=== PATIENT | male | born 2000 | race Two or more races ===

== ENCOUNTER 2024-11-25 12:49 | Emergency (ER) | payer MEDICAID, SELFPAY ==
[2024-11-25 13:07] VITALS: BP 144/86; PULSE 100; RESP 18; TEMP 36.9; O2SAT 99; BMI 27.4
--- NOTE | 2024-11-25 13:11 | XR_ITS ---
Examination: Right hand 2 views TECHNIQUE: AP lateral right hand 2 views Date and time: November 25, 2024, 1312 hours INDICATIONS: Right thumb pain 2 weeks. FINDINGS: Soft tissue swelling about the right No fracture No foreign body No cortical bone destruction IMPRESSION: No cortical bone destruction or foreign body
--- NOTE | 2024-11-25 13:42 | PD.EDSKIN ---
ED Skin Abcess FB-RME/HPI General Chief complaint: Hand/Wrist Problems Stated complaint: SWELLING R) THUMB, 12/06 Time Seen by Provider: 11/25/24 12:58 Arrival date/time: 11/25/24 12:49 This is a case of 24-year-old male with no medical history came in in the emergency room due to right thumb pain and swelling history of present illness started 2 days prior to arrival in the emergency room patient was walking and accidentally fell and hyperextended her right thumb patient sustained a abrasion on the side of the right thumb due to worsening of the pain swelling and discharge from the abrasion patient decided to sought consult here in the emergency room patient tetanus shot is not up-to-date Limitations: no limitations Related Data Previous Rx's ?Medication ?Instructions ?Recorded cephalexin 500 mg capsule 500 mg PO QID #40 caps 11/25/24 ibuprofen 800 mg tablet 800 mg PO Q8H PRN pain #20 tabs 11/25/24 mupirocin 2 % topical ointment 1 applic topical TID #22 grams 11/25/24 sulfamethoxazole 800 1 tab PO Q12H #20 tabs 11/25/24 mg-trimethoprim 160 mg tablet (Bactrim DS) Allergies Allergy/AdvReac Type Severity Reaction Status Date / Time No Known Allergies Allergy Verified 11/25/24 12:55 Review of Systems Review of Systems Systems Reviewed: All systems reviewed, normal except as documented Constitutional Constitutional: Reports system reviewed and no additional complaints, except as documented and Reports as per HPI Cardiovascular Cardiovascular: Reports system reviewed and no additional complaints, except as documented and Reports as per HPI Respiratory Respiratory: Reports system reviewed and no additional complaints, except as documented and Reports as per HPI Gastrointestinal Gastrointestinal: Reports system reviewed and no additional complaints, except as documented and Reports as per HPI Musculoskeletal Musculoskeletal: Reports system reviewed and no additional complaints, except as documented and Reports as per HPI Neurologic Neurologic: Reports system reviewed and no additional complaints, except as documented and Reports as per HPI Past Medical History Social History SMOKING STATUS: Current every day smoker ED Exam General Limitations: Present no limitations General appearance: Present alert, in no apparent distress and other (Patient is awake alert oriented not in distress nontoxic looking well-hydrated well-nourished) Head Head exam: Present atraumatic, normocephalic and normal inspection Eye Eye exam: Present normal appearance, PERRL and EOMI ENT ENT exam: Present normal exam, normal oropharynx and mucous membranes moist Neck Neck exam: Present normal inspection, full ROM and trachea midline; Absent tenderness, meningismus, lymphadenopathy or thyromegaly Chest Chest inspection: Present normal inspection and symmetric chest wall rise; Absent tenderness Respiratory Respiratory exam: Present normal lung sounds bilaterally; Absent respiratory distress, wheezes, stridor, accessory muscle use or prolonged expiratory phase Cardiovascular Cardiovascular exam: Present regular rate, normal rhythm and normal heart sounds; Absent bradycardia, tachycardia, irregular rhythm, systolic murmur or diastolic murmur Abdominal Exam Abdominal exam: Present soft and normal bowel sounds; Absent distention, tenderness, guarding, rebound, rigidity, diminished bowel sounds, hyperactive bowel sounds, hypoactive bowel sounds or organomegaly Extremities Exam Extremities exam: Present normal inspection and full ROM Expanded Upper Extremity Exam Hand exam: Present normal inspection, full ROM and other (Noted a infected abrasion on the right side of the right thumb with discharge redness swelling tender on palpation ROM is intact nail is intact pulses were full and equal capillary refill less than 2 seconds); Absent tenderness, swelling, abrasion, laceration, skin avulsion, ecchymosis, deformity, crepitus, dislocation, erythema, amputation, nail avulsion or subungual hematoma Back Exam Back exam: Present normal inspection and full ROM Neurological Exam Neurological exam: Present alert, oriented X3, CN II-XII intact, normal gait and reflexes normal; Absent motor sensory deficit Psychiatric Psychiatric exam: Present normal affect and normal mood Skin Skin exam: Present warm, dry, intact, normal color and other (Infected abrasion on the right thumb with cellulitis) Course Quality Measures none Orders Category Date Time Status Wound Care NOW Care 11/25/24 13:11 Active XR hand RT 2V Stat Exams 11/25/24 13:11 Completed Ibuprofen Tab [Motrin Tab] Med 11/25/24 13:41 Once 800 mg PO X1 ONE TET,DIP/PERT AC (Adult)-Tdap [Boostrix Adult (Tdap) Med 11/25/24 13:11 Discontinued Vacc] 0.5 ml IMI .ONCE ONE cefTRIAXone [Rocephin] 1,000 mg Med 11/25/24 13:38 Discontinued Lidocaine 1% 20 ml [Xylocaine 1% 20 ML] 2.1 ml IM X1 Vital Signs Vital signs: Vital Signs Temperature 98.5 F 11/25/24 13:07 Pulse Rate 100 11/25/24 13:07 Respiratory Rate 18 11/25/24 13:07 Blood Pressure 144/86 H 11/25/24 13:07 Pulse Oximetry (%) 99 11/25/24 13:07 Oxygen Delivery Method Room Air 11/25/24 13:07 Oxygen saturation is 99% in room air normal Skin / Abscess / Foreign Body MDM Narrative MDM Narrative:: This is a case of 24-year-old male with no medical history came in in the emergency room due to right thumb pain and swelling history of present illness started 2 days prior to arrival in the emergency room patient was walking and accidentally fell and hyperextended her right thumb patient sustained a abrasion on the side of the right thumb due to worsening of the pain swelling and discharge from the abrasion patient decided to sought consult here in the emergency room patient tetanus shot is not up-to-date physical examination patient is awake alert oriented not in distress nontoxic looking well-hydrated well-nourished right time was cleaned with normal saline and Betadine dry and applied triple antibiotic ointment x-ray showed no fracture no dislocation physical examination showed a swelling tenderness on palpation on the right thumb with infected abrasion ROM intact neurovascular is intact the rest of the physical examination and neurological exam is normal and unremarkable patient was given ceftriaxone IM here due to cellulitis of the right thumb patient will follow-up with PCP in 2 days for reevaluation and worsening symptoms or any emergent condition return precaution in the ER was advised Patient was discharged with comfortable condition walking with stable gait. Patient verbalized no further complains explained diagnosis and answered patient question. Patient is comfortable with the proposed management plan including the need to follow up with his/her primary care physician and any specialist if applicable Discussed patient for any urgent condition or worsening sx, He/She needed to go to emergency room immediately or call 911. Patient acknowledge the responsibility to follow up as instructed and to monitor her/his symptoms. For any persistence of the symptoms for more than 3-5 days return precaution advised. Discussed the result of the test and was given printed discharge instruction Patient data External records reviewed:: [facility] previous records Clinical information provided by:: patient Social determinants that could affect healthcare access:: none (None) Patient has the following chronic illnesses:: None How is presenting disease/condition affected by chronic disease/condition?: no chronic disease Evaluation data The following diagnostics were reviewed and interpreted by me:: radiology exam(s) Lab and/or radiology exams considered but not ordered:: Reviewed Interpretation Summary: Reviewed Medications / Prescriptions Medications or Prescriptions considered but not ordered:: Given Medication administrations:: Medication Administration History Ibuprofen (Ibuprofen Tab 400 Mg Tablet) 800 mg PO X1 ONE Stop: 11/25/24 13:42 Discontinued Medications Ceftriaxone Sodium 1,000 mg/ (Lidocaine HCl 2.1 ml) 0 mg IM X1 ONE Stop: 11/25/24 13:39 Diphtheria/Tetanus/Acell Pertussis (Diphth,Pertuss(Acell),Tet Vac 0.5 Ml Syr- Adult) 0.5 ml IMi .ONCE ONE Stop: 11/25/24 13:12 Last Admin: 11/25/24 13:37 Dose: Not Given Documented By: OA Non-Admin Reason: Patient Refused Given Consultations Consultation(s) initiated? (list below): No Diagnosis Skin/Abscess Differential Diagnosis: abscess of skin or subcutaneous tissue and cellulitis Most likely diagnosis given after review of the tests above:: Cellulitis right thumb secondary to infected abrasion Admission Indicated Admission indicated?: not indicated Explain why admission is indicated or not indicated:: Not indicated Admission Request Was there a request for admission?: No Admission Attestation Admission request attestation: Not indicated Disposition Plan Disposition Plan: Discharge Discharge Attestation Discharge Attestation: The patient and all family members were given an opportunity to ask questions and understood the discharge instructions. Discharge instructions specifically effects, indications for sooner follow up or return to the emergency department, and the expected course of current diagnosis. Patient condition: Stable Discharge Plan Plan Patient Disposition: HOME (Self Care) Patient condition on transfer: Stable Prescriptions/Referrals Prescriptions/Med Rec: New sulfamethoxazole-trimethoprim [Bactrim DS] 800-160 mg tablet 1 tab PO Q12H Qty: 20 0RF cephalexin 500 mg capsule 500 mg PO QID Qty: 40 0RF mupirocin 2 % ointment 1 applic topical TID Qty: 22 0RF ibuprofen 800 mg tablet 800 mg PO Q8H PRN (Reason: pain) Qty: 20 0RF Problem List Clinical Impression: Abrasion of thumb, infected, Cellulitis of thumb Patient/Caregiver Discharge Instructions Education Materials: ED Abrasions, ED Cellulitis Additional Instructions: Follow-up with your primary care physician in 2 days for reevaluation and wound check return to the emergency room in 2 days for reevaluation of the cellulitis of the stump worsening symptoms or any emergent concerns such as redness swelling discharge from the wound pain fever chills return to the emergency room immediately or call 911 wound care daily keep the wound clean and dry finish the course of antibiotic Print Language: Faroese Stand Alone Forms: Winter Award Info., Patient Portal Info Letter PA/[employer] PRE[employer] HEALTH EDUCATOR Supervising Physician PA/[employer] PRE[employer] HEALTH EDUCATOR Supervising Physician: Dr. Collins
[2024-11-25] MEDS: IBUPROFEN TAB 400 MG TABLET 800 MG PO (13:47)
[2024-11-25] MEDS: cefTRIAXone 1,000 MG, LIDOCAINE 1% 20 ML 2.1 ML IM (13:48)
== END 2024-11-25 14:09 | disposition home or self-care (01) ==
LOC: SERX 13:59
PROVIDERS: Emergency Provider Family Medicine
DX: S60.311A Abrasion of right thumb, initial encounter (principal); L03.011 Cellulitis of right finger; W19.XXXA Unspecified fall, initial encounter; X50.9XXA Other and unspecified overexertion or strenuous movements or postures, initial encounter; Y93.01 Activity, walking, marching and hiking
CPT/HCPCS: 73120; 96372; 99284; J0696; J3490; A9270